=== PATIENT | female | born 1980 | race Caucasian/White ===

== ENCOUNTER → 2021-06-17 | Outpatient (CLI) | payer BC ==
--- NOTE | 2021-06-19 12:09 | MM ---
Reason for exam: screening (asymptomatic). Baseline mammogram. History: Family history of breast cancer in maternal grandmother. Physical Findings: Nurse did not find any significant physical abnormalities on exam. MG 3D Screening Mammo W/Cad Bilateral CC and MLO view(s) were taken. The breast tissue is heterogeneously dense. This may lower the sensitivity of mammography. There is no discrete abnormality. No persisting abnormality on 3D images. ASSESSMENT: Negative, BI-RAD 1 RECOMMENDATION: Routine screening mammogram of both breasts in 1 year. Manage on a clinical basis with regard to left breast pain upper outer quadrant.
== END | disposition home or self-care (01) ==
LOC: RADMAMWWP 14:09
PROVIDERS: ATTEND Family Medicine
DX: Z12.31 Encounter for screening mammogram for malignant neoplasm of breast (principal); Z80.3 Family history of malignant neoplasm of breast
CPT/HCPCS: 77063; 77067

== ENCOUNTER → 2022-09-01 | Outpatient (CLI) | payer BC ==
--- NOTE | 2022-09-02 18:39 | MM ---
Reason for Exam: Screening (asymptomatic). Last mammogram was performed 1 year(s) and 3 month(s) ago. Patient History: Menarche at age 16. First Full-Term at age 25. Maternal grandmother had breast cancer. Risk Values: Brigitte 5 year model risk: 0.5%. NCI Lifetime model risk: 8.2%. Prior Study Comparison: 06/17/2021 Bilateral Screening Mammogram, [facility]. Tissue Density: The breast tissue is heterogeneously dense. This may lower the sensitivity of mammography. Findings: Analyzed By CAD. Chronic nodularity lateral left breast posterior depth. Some scattered areas of asymmetric density did not persist on 3-D images. There is no suspicious group of microcalcifications or new suspicious mass in either breast. Overall Assessment: Benign, BI-RAD 2 Management: Screening Mammogram of both breasts in 1 year. 1. Patient should continue monthly self breast exams. 2. A clinical breast exam by your physician is recommended on an annual basis. 3. This exam should not preclude additional follow-up of suspicious palpable abnormalities. Electronically signed and approved by: Rochelle Albrecht M.D. Radiologist
== END | disposition home or self-care (01) ==
LOC: RADMAMWWP 15:10
PROVIDERS: ATTEND Family Medicine
DX: Z12.31 Encounter for screening mammogram for malignant neoplasm of breast (principal); Z80.3 Family history of malignant neoplasm of breast
CPT/HCPCS: 77063; 77067

== ENCOUNTER 2024-08-24 11:08 | Emergency (ER) | payer BC ==
[2024-08-24 11:34] VITALS: RESP 18; TEMP 98.6
--- NOTE | 2024-08-24 11:59 | ED ---
Animal Bite HPI - General Chief Complaint: Animal Bite Stated Complaint: L hand lac Time Seen by Provider: 08/24/24 11:58 Source: patient, RN notes reviewed Mode of arrival: ambulatory Limitations: no limitations - History of Present Illness Initial Comments: Patient is a 44 female presented to ER for evaluation of a dog bite. Patient states her to foster dogs at home fighting. She attempted to pull the dogs from each other when she accidentally slipped. She states her hand slipped into one of the dog's mouth who bit her hand. She was reporting a wound over her left second MCP joint. She reports tingling sensation to her second digit. Tetanus is not up-to-date. Dogs are up-to-date on vaccinations. Patient reports no limited range of motion. Patient denies any other injuries or complaints at this time. - Related Data Home Medications Medication Instructions Recorded Confirmed ALPRAZolam [Xanax] 0.25 mg PO DAILY PRN 07/03/17 07/03/17 Aspirin/Acetaminophen/Caffeine 1 tab PO BID PRN 07/03/17 07/03/17 [Excedrin Migraine Caplet] PARoxetine HCL [Paxil] 30 mg PO DAILY 07/03/17 07/03/17 SUMAtriptan succinate [Imitrex] 50 mg PO BID PRN 07/03/17 07/03/17 Previous Rx's Medication Instructions Recorded Amoxic-Pot Clav 875-125Mg 1 tab PO Q12HR #20 tab 08/24/24 [Augmentin 875-125] Allergies Allergy/AdvReac Type Severity Reaction Status Date / Time adhesive Allergy Rash/Hives Verified 08/24/24 11:28 Review of Systems ROS Statement: Those systems with pertinent positive or pertinent negative responses have been documented in the HPI. ROS Other: All systems not noted in ROS Statement are negative. Past Medical History Past Medical History: No Reported History History of Any Multi-Drug Resistant Organisms: None Reported Past Surgical History: Section, Cholecystectomy Additional Past Surgical History / Comment(s): d&c with ovary and tube removal Past Psychological History: Anxiety Smoking Status: Vaper Past Alcohol Use History: None Reported Past Drug Use History: None Reported General Exam Limitations: no limitations General appearance: alert, in no apparent distress Respiratory exam: Present: normal lung sounds bilaterally. Absent: respiratory distress, wheezes, rales, rhonchi, stridor Cardiovascular Exam: Present: regular rate, normal rhythm, normal heart sounds. Absent: systolic murmur, diastolic murmur, rubs, gallop, clicks Extremities exam: Present: normal inspection, full ROM, normal capillary refill, other (2 cm laceration to left second dorsal MCP joint. No active bleeding. Tendon is visible. 2+ left radial pulse.). Absent: tenderness, pedal edema, joint swelling, calf tenderness Neurological exam: Present: alert, oriented X3, CN II-XII intact Skin exam: Present: warm, dry, intact, normal color. Absent: rash Course Vital Signs 08/24/24 08/24/24 11:28 13:29 Temperature 98.6 F 98.6 F Pulse Rate 107 H 92 Respiratory 18 18 Rate Blood Pressure 148/105 137/86 O2 Sat by Pulse 98 98 Oximetry Procedures - Laceration Laceration #1 Consent Obtained: verbal consent Indication: laceration Site: hand Size (cm): 2 Description: linear Depth: simple, single layer Anesthetic Used: lidocaine 1%, without epi Anesthesia Technique: local infiltration Amount (mls): 2 Pre-repair: wound explored, irrigated extensively, deep structures intact (Tendon exposed but appears intact) Type of Sutures: nylon Size of Sutures: 4-0 Number of Sutures: 3 Technique: simple, interrupted Patient Tolerated Procedure: well (Patient remained neurovascularly intact with full range of motion.) Medical Decision Making - Medical Decision Making Was pt. sent in by a medical professional or institution (Dr. PA, BOBBIN SORTER, urgent care, hospital, or halfway...) When possible be specific @ -No Did you speak to anyone other than the patient for history (EMS, parent, family, police, friend...)? What history was obtained from this source @ -No Did you review nursing and triage notes (agree or disagree)? Why? @ -I reviewed and agree with nursing and triage notes Were old charts reviewed (outside hosp., previous admission, EMS record, old EKG, old radiological studies, urgent care reports/EKG's, halfway records)? Report findings @ -No old charts were reviewed Differential Diagnosis (chest pain, altered mental status, abdominal pain women, abdominal pain men, vaginal bleeding, weakness, fever, dyspnea, syncope, headache, dizziness, GI bleed, back pain, seizure, CVA, palpatations, mental health, musculoskeletal)? @ -Laceration, abrasion, contusion, avulsion, foreign body this list is not meant to be all-inclusive EKG interpreted by me (3pts min.). @ -None done X-rays interpreted by me (1pt min.). @ -Left hand x-ray interpreted by me negative for acute osseous process or radiopaque foreign body. CT interpreted by me (1pt min.). @ -None done U/S interpreted by me (1pt. min.). @ -None done What testing was considered but not performed or refused? (CT, X-rays, U/S, labs)? Why? @ -None What meds were considered but not given or refused? Why? @ -Patient refused rabies vaccinations and will monitor animal for any concerning signs. Did you discuss the management of the patient with other professionals (professionals i.e. , PA, BOBBIN SORTER, lab, RT, psych nurse, social scientist, fence supervisor, teacher, chief financial officer, director of casework)? Give summary @ -No Was smoking cessation discussed for >3mins.? @ -No Was critical care preformed (if so, how long)? @ -No Were there social determinants of health that impacted care today? How? (Homelessness, low income, unemployed, alcoholism, drug addiction, transportation, low edu. Level, literacy, decrease access to med. care, longterm, rehab)? @ -No Was there de-escalation of care discussed even if they declined (Discuss DNR or withdrawal of care, Hospice)? DNR status @ -No What co-morbidities impacted this encounter? (DM, HTN, Smoking, COPD, CAD, Cancer, CVA, ARF, Chemo, Hep., AIDS, mental health diagnosis, sleep apnea, morbid obesity)? @ -None Was patient admitted / discharged? Hospital course, mention meds given and route, prescriptions, significant lab abnormalities, going to OR and other pertinent info. @ -Discharge. 44-year-old female presented to the ER for evaluation of dog bite. History and physical exam completed. Vitals within normal limits. Exam remarkable for 2 cm laceration over left second MCP joint. Tendon is visible but appears intact. Patient has full range of motion and is neurovascularly intact. Tetanus updated. X-rays obtained negative for acute osseous process or radiopaque foreign body. Given location and visible tendon wound approximated with sutures, see note above. Patient prescribed Augmentin. Suture care and strict return parameters discussed. I advised suture removal in 10 to 14 days. Strict return parameters discussed. Patient discharged in stable condition with follow-up to PCP. Patient verbally expressed understanding and agreement with care plan. Case discussed with ED attending, Dr. Villalobos. Undiagnosed new problem with uncertain prognosis? @ -No Drug Therapy requiring intensive monitoring for toxicity (Heparin, Nitro, Insulin, Cardizem)? @ -No Were any procedures done? @ -No Diagnosis/symptom? @ -Dog bite Acute, or Chronic, or Acute on Chronic? @ -Acute Uncomplicated (without systemic symptoms) or Complicated (systemic symptoms)? @ -Uncomplicated Side effects of treatment? @ -No Exacerbation, Progression, or Severe Exacerbation? @ -No Poses a threat to life or bodily function? How? (Chest pain, [place], [place], pneumonia, PE, COPD, DKA, ARF, appy, cholecystitis, CVA, Diverticulitis, Homicidal, Suicidal, threat to staff... and all critical care pts) @ -Low at this time. Dog bites can lead to infections. - Radiology Data Radiology results: report reviewed, image reviewed Disposition Clinical Impression: Dog bite Disposition: HOME SELF-CARE Condition: Stable Instructions (If sedation given, give patient instructions): Animal Bite (ED), Care For Your Stitches (DC) Additional Instructions: Have sutures removed in 10 to 14 days. Keep area clean and dry. Complete full course of Augmentin. Monitor for signs of infection including surrounding redness, purulent drainage or increase of pain and swelling. Return to the ER for any new or worsening concerns. Prescriptions: Amoxic-Pot Clav 875-125Mg [Augmentin 875-125] 1 tab PO Q12HR #20 tab Is patient prescribed a controlled substance at d/c from ED?: No Referrals: Myra Ruiz MD [Primary Care Provider] - 1-2 days Time of Disposition: 13:13
[2024-08-24] MEDS: DIPH,PERTUS(ACELL)TETVAC-LF 0.5 ML VIAL IM ONE (12:02)
[2024-08-24] MEDS: ACETAMINOPHEN TAB 325 MG TAB PO STA (12:03)
--- NOTE | 2024-08-24 12:46 | XR ---
EXAMINATION TYPE: XR hand complete LT DATE OF EXAM: 08/24/2024 12:41 PM INDICATION: Patient age:Female; 44 years old; Reason for study: dog bite 2nd MTP joint; PHH. pain COMPARISON: None TECHNIQUE: Frontal, lateral and oblique views of the left hand were obtained. FINDINGS: Normal alignment of the visualized joints. No acute osseous pathology is identified. No e vidence of soft tissue swelling. No radiopaque foreign body. IMPRESSION: No acute osseous pathology. No radiopaque foreign body. [facility], , 08/24/2024 12:43 PM
[2024-08-24] MEDS: LIDOCAINE 1% INJ 10MG/ML (20 ML MDV) SQ ONE (12:56)
[2024-08-24 13:31] VITALS: BP 137/86; PULSE 92
== END 2024-08-24 13:29 | disposition home or self-care (01) ==
LOC: EC 11:08
DX: S61.412A Laceration without foreign body of left hand, initial encounter (principal); F17.290 Nicotine dependence, other tobacco product, uncomplicated; Z88.8 Allergy status to other drugs, medicaments and biological substances; Z23 Encounter for immunization; W54.0XXA Bitten by dog, initial encounter
CPT/HCPCS: 73130; 90715; 99283; 90471; 12001; J2003